=== PATIENT | female | born 1965 | race Caucasian/White ===

== ENCOUNTER 2023-04-18 23:32 | Inpatient (IN) | payer OTHER ==
[~2023-04-18] VITALS: Ht 160 cm; Wt 56.7 kg
[2023-04-18 23:34] VITALS: BP_SYST 158; PULSE 135; RESP 30; TEMP 96.8; O2SAT 94
[2023-04-18] MEDS ORDERED: ONDANSETRON 4 MG ODT TAB ONE (23:36)
[2023-04-18] MEDS ORDERED: ONDANSETRON HCL 4 MG/2 ML VIAL ONE (23:40)
[2023-04-18] MEDS ORDERED: ONDANSETRON HCL 4 MG/2 ML VIAL IVP ONE (23:45)
[2023-04-19] VITALS (7 sets, daily range): BP systolic 123–156; PULSE 98–120; RESP 16–20; TEMP 96.8–99; O2SAT 95–99
[2023-04-19] MEDS ORDERED: ONDANSETRON 4 MG ODT TAB PO ONE
[2023-04-19 00:04] LABS: BASOPHILS % (AUTO) 0.7 % (0.0-2.0); EOSINOPHILS % (AUTO) 0.6 % (0.0-4.0); HEMATOCRIT 31.7 % (36-48); HEMOGLOBIN 10.3 g/dL (12.0-16.0); LYMPHOCYTES # (AUTO) 1.3 K/uL (1.0-5.5); LYMPHOCYTES % (AUTO) 21.3 % (20.5-51.5); MEAN CORPUSCULAR HEMOGLOBIN 29 pg (27-31); MEAN CORPUSCULAR HGB CONC 33 % (32-36); MEAN CORPUSCULAR VOLUME 88 fL (79.0-98.0); MONOCYTES # (AUTO) 0.5 K/uL (0.0-1.0); MONOCYTES % (AUTO) 7.7 % (1.7-9.3); NEUTROPHILS # (AUTO) 4.4 K/uL (1.8-7.7); NEUTROPHILS % (AUTO) 69.7 % (40.0-70.0); PLATELET COUNT (AUTO) 668 K/uL (130-430); RED BLOOD CELL COUNT(AUTO) 3.59 MIL/uL (4.2-6.2); RED CELL DISTRIBUTION WIDTH 20.5 % (9.0-15.0); WHITE BLOOD COUNT (AUTO) 6.3 K/uL (4.8-10.8)
[2023-04-19 00:20] LABS: ANION GAP 13 (5-15); CARBON DIOXIDE 24 mmol/L (23-29); CHLORIDE 101 mmol/L (98-107); CREATININE 0.95 mg/dL (0.55-1.30); GFR AFRICAN AMERICAN 78 mL/min (>90); GLUCOSE 156 mg/dL (74-106); POTASSIUM 4.1 mmol/L (3.5-5.1); SODIUM SERUM 138 mmol/L (136-145); UREA NITROGEN, BLOOD 20 mg/dL (8-21)
[2023-04-19 00:27] LABS: GFR NON AFRICAN-AMERICAN 64 mL/min (>90)
[2023-04-19 00:30] LABS: PROTHROMBIN TIME 10.1 SECS (9.5-12.5)
[2023-04-19 00:39] LABS: INFLUENZA TYPE A Negative (NEGATIVE); INFLUENZA TYPE B NEGATIVE (NEGATIVE)
[2023-04-19 00:41] LABS: ALANINE AMINOTRANSFERASE 15 U/L (12-78); ALBUMIN 3.5 g/dL (3.4-4.8); ASPARTATE AMINOTRANSFERASE 21 U/L (10-37); TOTAL BILIRUBIN 0.4 mg/dL (0.0-1.0); TOTAL PROTEIN, SERUM 7.2 g/dL (6.4-8.3)
[2023-04-19] MEDS ORDERED: FUROSEMIDE 40 MG/4 ML VIAL IVP ONE (01:00)
[2023-04-19] MEDS ORDERED: ASPIRIN 81 MG TABLET(ECOTRIN) PO ONE (01:45)
[2023-04-19] MEDS ORDERED: ENOXAPARIN SODIUM 60 MG/0.6 ML SYRINGE SUBCUT ONE ×2 (02:15→10:00)
[2023-04-19] MEDS ORDERED: HYDR-3917 PO (03:55)
[2023-04-19] MEDS ORDERED: FURO20TA4 PO (03:55)
[2023-04-19] MEDS ORDERED: POLY238P32 PO (03:55)
[2023-04-19] MEDS ORDERED: PROC-14 PO (03:55)
[2023-04-19] MEDS ORDERED: ENOXAPARIN SODIUM 60 MG/0.6 ML SYRINGE SUBCUT SCH (09:00)
[2023-04-19] MEDS: LORazepam 2 MG/ML VIAL IVP PRN (09:47)
[2023-04-19] MEDS ORDERED: HYDROcodone/ACETAMIN 10-325 MG TAB PO PRN (10:30)
[2023-04-19] MEDS ORDERED: NALOXONE HCL 0.4 MG/ML AMP (NARCAN) IVP PRN ×2 (10:30)
[2023-04-19] MEDS ORDERED: HYDROcodone/ACETAMIN 5-325 MG TAB (NORCO/ VICODIN) PO PRN (10:30)
[2023-04-19] MEDS: IPRATROPIUM BROM 0.5 MG/2.5 ML VIAL.NEB (ATROVENT) INH PRN (11:42)
[2023-04-19] MEDS: ALBUTEROL SULFATE 0.083% 2.5 MG/3 ML VIAL.NEB INH PRN (11:42)
[2023-04-19] MEDS ORDERED: CARVEDILOL 6.25 MG TABLET (COREG) PO ONE (12:00)
[2023-04-19] MEDS: NORMAL SALINE 5 ML DISP.SYRIN IVF SCH ×2 (15:42→20:19)
[2023-04-19] MEDS: CARVEDILOL 6.25 MG TABLET (COREG) PO SCH (20:18)
[2023-04-19] MEDS: FUROSEMIDE 20 MG/2 ML VIAL IVP SCH (20:19)
[2023-04-20] VITALS (8 sets, daily range): BP systolic 125–138; PULSE 83–96; RESP 16–20; TEMP 96.4–98.8; O2SAT 95–100
[2023-04-20] MEDS: ACETAMINOPHEN 325 MG TABLET PO PRN ×2 (01:29→05:43)
[2023-04-20] MEDS: ONDANSETRON HCL 4 MG/2 ML VIAL IVP PRN (01:30)
[2023-04-20] MEDS: NORMAL SALINE 5 ML DISP.SYRIN IVF SCH ×3 (05:41→21:19)
[2023-04-20 06:40] LABS: BASOPHILS # (AUTO) 0.1 K/uL (0.0-0.2); BASOPHILS % (AUTO) 1.3 % (0.0-2.0); EOSINOPHILS # (AUTO) 0.1 K/uL (0.0-0.4); EOSINOPHILS % (AUTO) 1.6 % (0.0-4.0); HEMATOCRIT 28.2 % (36-48); HEMOGLOBIN 9.4 g/dL (12.0-16.0); LYMPHOCYTES # (AUTO) 1.5 K/uL (1.0-5.5); LYMPHOCYTES % (AUTO) 29.5 % (20.5-51.5); MEAN CORPUSCULAR HEMOGLOBIN 29 pg (27-31); MEAN CORPUSCULAR HGB CONC 33 % (32-36); MEAN CORPUSCULAR VOLUME 88 fL (79.0-98.0); MONOCYTES # (AUTO) 0.7 K/uL (0.0-1.0); MONOCYTES % (AUTO) 13.3 % (1.7-9.3); NEUTROPHILS # (AUTO) 2.7 K/uL (1.8-7.7); NEUTROPHILS % (AUTO) 54.3 % (40.0-70.0); PLATELET COUNT (AUTO) 583 K/uL (130-430); RED BLOOD CELL COUNT(AUTO) 3.19 MIL/uL (4.2-6.2); RED CELL DISTRIBUTION WIDTH 20.3 % (9.0-15.0); WHITE BLOOD COUNT (AUTO) 4.9 K/uL (4.8-10.8)
[2023-04-20 06:41] LABS: CALCIUM 8.8 mg/dL (8.4-11.0); CREATININE 1.1 mg/dL (0.55-1.30); PHOSPHORUS 4.4 mg/dL (2.7-4.5); POTASSIUM 4.5 mmol/L (3.5-5.1)
[2023-04-20] MEDS: FUROSEMIDE 20 MG/2 ML VIAL IVP SCH (08:35)
[2023-04-20] MEDS: ENOXAPARIN SODIUM 60 MG/0.6 ML SYRINGE SUBCUT SCH ×2 (08:36→09:00)
[2023-04-20] MEDS: CARVEDILOL 6.25 MG TABLET (COREG) PO SCH ×2 (08:36→21:19)
[2023-04-20] MEDS: LORazepam 2 MG/ML VIAL IVP PRN (08:37)
[2023-04-20] MEDS: POLYETHYLENE GLYCOL 3350, 17 GM/ POWD.PACK PO SCH ×2 (08:47→09:00)
[2023-04-20] MEDS ORDERED: POLYETHYLENE GLYCOL 400 500 GM POWDER PO SCH (09:00)
[2023-04-20] MEDS: SACUBITRIL/VALSARTAN 24 MG-26 MG 1 TABLET PO SCH (21:19)
[2023-04-21] MEDS: ONDANSETRON HCL 4 MG/2 ML VIAL IVP PRN (02:59)
[2023-04-21 03:27] VITALS: O2SAT 97
[2023-04-21] MEDS: ALBUTEROL SULFATE 0.083% 2.5 MG/3 ML VIAL.NEB INH PRN (03:27)
[2023-04-21] MEDS: IPRATROPIUM BROM 0.5 MG/2.5 ML VIAL.NEB (ATROVENT) INH PRN (03:27)
[2023-04-21] MEDS: NORMAL SALINE 5 ML DISP.SYRIN IVF SCH (05:28)
[2023-04-21 06:42] LABS: BASOPHILS # (AUTO) 0.1 K/uL (0.0-0.2); BASOPHILS % (AUTO) 1.8 % (0.0-2.0); EOSINOPHILS # (AUTO) 0.1 K/uL (0.0-0.4); EOSINOPHILS % (AUTO) 1.7 % (0.0-4.0); HEMATOCRIT 27.1 % (36-48); LYMPHOCYTES # (AUTO) 1.8 K/uL (1.0-5.5); LYMPHOCYTES % (AUTO) 43.4 % (20.5-51.5); MEAN CORPUSCULAR HEMOGLOBIN 29 pg (27-31); MEAN CORPUSCULAR HGB CONC 33 % (32-36); MEAN CORPUSCULAR VOLUME 88 fL (79.0-98.0); MONOCYTES # (AUTO) 0.7 K/uL (0.0-1.0); MONOCYTES % (AUTO) 17.4 % (1.7-9.3); NEUTROPHILS # (AUTO) 1.5 K/uL (1.8-7.7); NEUTROPHILS % (AUTO) 35.7 % (40.0-70.0); PLATELET COUNT (AUTO) 496 K/uL (130-430); RED BLOOD CELL COUNT(AUTO) 3.07 MIL/uL (4.2-6.2); RED CELL DISTRIBUTION WIDTH 20.6 % (9.0-15.0); WHITE BLOOD COUNT (AUTO) 4.2 K/uL (4.8-10.8)
[2023-04-21 06:43] LABS: CALCIUM 8.6 mg/dL (8.4-11.0); CREATININE 0.83 mg/dL (0.55-1.30); POTASSIUM 4.4 mmol/L (3.5-5.1)
[2023-04-21] MEDS: SACUBITRIL/VALSARTAN 24 MG-26 MG 1 TABLET PO SCH (08:46)
[2023-04-21] MEDS: ACETAMINOPHEN 325 MG TABLET PO PRN (08:48)
[2023-04-21] MEDS: CARVEDILOL 6.25 MG TABLET (COREG) PO SCH (08:50)
[2023-04-21] MEDS: POLYETHYLENE GLYCOL 3350, 17 GM/ POWD.PACK PO SCH (08:55)
[2023-04-21] MEDS ORDERED: SACU1TAB PO (08:59)
[2023-04-21] MEDS ORDERED: SPIR25TA PO (08:59)
[2023-04-21] MEDS ORDERED: FURO-149 PO (08:59)
[2023-04-21] MEDS ORDERED: COR6.25 PO (08:59)
[2023-04-21] MEDS ORDERED: SPIRONOLACTONE 25 MG TABLET (ALDACTONE) PO SCH (09:00)
[2023-04-21] MEDS ORDERED: FUROSEMIDE 40 MG TABLET PO SCH (09:00)
[2023-04-21] MEDS ORDERED: ENOXAPARIN SODIUM 40 MG/0.4 ML SYRINGE SUBCUT SCH (09:00)
[2023-04-21 10:25] VITALS: O2SAT 97
[2023-04-21 10:37] VITALS: BP_SYST 128; PULSE 79; RESP 16; TEMP 99
[2023-04-21 12:00] VITALS: BP_SYST 105; PULSE 70; RESP 18; TEMP 98.9; O2SAT 100
[2023-04-21 12:43] VITALS: BP_SYST 105; PULSE 63; RESP 18; TEMP 98.9; O2SAT 100
== END 2023-04-21 14:50 | disposition home or self-care (01) | DRG 280 ==
LOC: SED 23:32 → STU 04-19 03:29
PROVIDERS: ADMIT Preventive Medicine Preventive Medicine/Occupational Environmental Medicine; ATTEND Preventive Medicine Preventive Medicine/Occupational Environmental Medicine
DX: I21.4 Non-ST elevation (NSTEMI) myocardial infarction (principal); I50.33 Acute on chronic diastolic (congestive) heart failure; J96.21 Acute and chronic respiratory failure with hypoxia; I42.7 Cardiomyopathy due to drug and external agent; C56.9 Malignant neoplasm of unspecified ovary; Z20.822 Contact with and (suspected) exposure to COVID-19; T45.1X5A Adverse effect of antineoplastic and immunosuppressive drugs, initial encounter; D64.9 Anemia, unspecified; I11.0 Hypertensive heart disease with heart failure; D72.819 Decreased white blood cell count, unspecified; D75.839 Thrombocytosis, unspecified; Z85.43 Personal history of malignant neoplasm of ovary; Z88.2 Allergy status to sulfonamides; Y92.89 Other specified places as the place of occurrence of the external cause; Z88.8 Allergy status to other drugs, medicaments and biological substances; Z79.899 Other long term (current) drug therapy; Z85.3 Personal history of malignant neoplasm of breast
CPT/HCPCS: 36415; 71045; 80048; 80053; 83735; 83880; 84100; 84484; 85025; 85610-TC; 85730-TC; 93005; 93306; 94640; 94760; 96374; 97116-GP; 97163-GP; 99285; G0378; J1650; J1940; J2060; J2405; Q0162